=== PATIENT | male | born 1955 | race Caucasian/White ===

== ENCOUNTER 2017-07-09 09:16 | Day surgery (SDC) | payer OTHER ==
[~2017-07-09] VITALS: Ht 162.6 cm; Wt 85.1 kg
[~2017-07-09 09:16] MED LIST: CLOB15CR2 TOP; COLC0.6T6 PO; IND50 PO
[2017-07-09] MEDS ORDERED: ALLO100T PO (09:56)
[2017-07-09] MEDS ORDERED: MYCO200S2 PO (09:56)
[2017-07-09] MEDS ORDERED: AMLO-147 PO (09:56)
[2017-07-09] MEDS ORDERED: LOSA100T7 PO (09:56)
[2017-07-09] MEDS ORDERED: OMEP20CA16 PO (09:56)
[2017-07-09] MEDS ORDERED: PRED5TAB PO (09:56)
[2017-07-09] MEDS ORDERED: TRAM50TA2 PO (09:56)
[2017-07-09] MEDS ORDERED: ATOR40TA68 PO (09:56)
[2017-07-09 09:58] VITALS: Ht 162.6 cm; Wt 85.1 kg
[2017-07-09] MEDS ORDERED: PROPOFOL 60 ML ONE (10:17)
[2017-07-09] MEDS ORDERED: LIDOCAINE 2% (SDV) 5 ML INJ ONE (10:17)
--- NOTE | 2017-07-09 10:54 | OPPN ---
Date/Time of Note Date/Time of Note DATE: 07/09/17 TIME: 10:52 Operative Report Preoperative Diagnosis Change in bowel habit History of rectal bleeding Postoperative Diagnosis Diverticulosis of the colon Sigmoid colon polyp was removed using a biopsy forceps Internal hemorrhoids Operation/Procedure Performed Colonoscopy and biopsy Provider: MONCHO CR MD Anesthesia Type: MAC Estimated blood loss: none Transfusion Required: no Specimens Sigmoid polyp biopsy Grafts/Implants: none Complications: no MONCHO CR MD Jul 09, 2017 10:54
[2017-07-09 11:20] VITALS: BP 138/76; RESP 14
--- NOTE | 2017-07-09 15:03 | GILP ---
DATE OF PROCEDURE: 07/09/2017 PROCEDURE PERFORMED: Colonoscopy and biopsy. SURGEON: Santi Jimenes MD. PREOPERATIVE DIAGNOSES: 1. Change in bowel habits. 2. Rectal bleeding. POSTOPERATIVE DIAGNOSES: 1. Colonoscopy all the way to the cecum. 2. Sigmoid colon polyp was removed using the biopsy forceps. 3. Internal hemorrhoids. 4. Diverticulosis of the colon. INDICATION: The patient is a 62-year-old male patient who had change in the bowel habits and rectal bleeding. The patient was scheduled for colonoscopy examination for further evaluation. The procedure and possible complications were well explained to the patient. He understood and consented to the procedure. DESCRIPTION OF PROCEDURE: Under influence of anesthesia, the colonoscope was carefully introduced in the rectum. Under direct vision, it was advanced all the way to the cecum. FINDINGS: The patient had a sigmoid colon polyp and it was removed using the biopsy forceps. He was noted to have diverticulosis of the colon and internal hemorrhoids. He tolerated the procedure very well. There was no complication from the procedure. At the end of procedure, he was awake with stable vital signs and he was discharged home in the care of his family. IMPRESSION: Please see postoperative diagnoses. PLAN: 1. Await histopathology report. 2. High fiber diet. 3. Screening colonoscopy in 5 years. Dictated By: MD KATHRINE Fischer/patel/lizzeth /Document#: [id number]
== END 2017-07-09 12:05 | disposition home or self-care (01) ==
LOC: GIL 09:16
PROVIDERS: ATTEND Internal Medicine Gastroenterology
DX: R19.4 Change in bowel habit (principal); D12.5 Benign neoplasm of sigmoid colon; K64.8 Other hemorrhoids; K57.90 Diverticulosis of intestine, part unspecified, without perforation or abscess without bleeding; I10 Essential (primary) hypertension; E78.5 Hyperlipidemia, unspecified; E66.01 Morbid (severe) obesity due to excess calories; Z68.31 Body mass index [BMI] 31.0-31.9, adult; Z85.46 Personal history of malignant neoplasm of prostate
CPT/HCPCS: 45380; 88305; Z7610

== ENCOUNTER 2019-06-17 10:24 | Day surgery (SDC) | payer OTHER ==
[~2019-06-17] VITALS: Ht 162.6 cm; Wt 79.8 kg
[~2019-06-17 10:24] MED LIST changes: +ALLO100T PO; +AMLO-147 PO; +ATENOLOL; +ATOR40TA68 PO; +BACLOFEN; -CLOB15CR2 TOP; -COLC0.6T6 PO; +CYMBALTA; +IMDUR; -IND50 PO; +LOSA100T15 PO; +MYCO200S2 PO; +OMEP20CA16 PO; +PRED5TAB PO; +TRAM50TA2 PO
[2019-06-17 11:22] VITALS: Ht 162.6 cm; Wt 79.8 kg
[2019-06-17 11:39] VITALS: BP 123/67; PULSE 71; RESP 16
[2019-06-17] MEDS ORDERED: PROPOFOL 20 ML ONE (12:50)
[2019-06-17 13:35] VITALS: BP 138/71; RESP 20
== END 2019-06-17 15:19 | disposition home or self-care (01) ==
LOC: GIL 10:24
PROVIDERS: ATTEND Internal Medicine Gastroenterology
DX: K21.9 Gastro-esophageal reflux disease without esophagitis (principal); K29.60 Other gastritis without bleeding
CPT/HCPCS: 88305; 88312